=== PATIENT | female | born 1980 | race Caucasian/White ===

== ENCOUNTER 2023-09-10 20:34 | Emergency (ER) | payer OTHER ==
[2023-09-10] MEDS: Lidocaine 1% with EPINEPHrine 1:100,000 20 ML MDV INJECT ONE (22:06)
[2023-09-10] MEDS: Diphtheria,Pertussis(Acell),Tetanus Vaccine 0.5 ML Syringe IM ONE (22:06)
[2023-09-10] MEDS: Bacitracin Oint 1 GM U/D Packet TOP ONE (22:06)
== END 2023-09-10 22:24 | disposition home or self-care (01) ==
LOC: JP.ED 20:34
DX: S01.01XA Laceration without foreign body of scalp, initial encounter (principal); Z87.891 Personal history of nicotine dependence; Z86.16 Personal history of COVID-19; Z23 Encounter for immunization; W22.8XXA Striking against or struck by other objects, initial encounter
CPT/HCPCS: 12002; 90471; 90715; 99283-25